=== PATIENT | female | born 1980 | race Caucasian/White ===

== ENCOUNTER 2019-12-10 14:26 | Emergency (ER) | payer OTHER, SELFPAY ==
[2019-12-10 14:34] VITALS: BP 172/92; PULSE 103; RESP 20; TEMP 37.2; O2SAT 100
--- NOTE | 2019-12-10 14:45 | ED.SKABFB ---
HPI - Skin/Abscess/Foreign Bdy General Chief complaint: Skin/Abscess/Foreign Body Stated complaint: Bite on side of face Time Seen by Provider: 12/10/19 14:45 Source: patient History of Present Illness HPI narrative: Patient presents with left-sided cellulitis on the face. Patient states she thought she was getting atrial fibrillation and had a stroke with tingling. Patient denies any drainage patient is having a fever. Patient states she had a friend take a lesion and try and lanced that area last night. No streaking. Patient denies any history of MRSA. Patient states she had some clindamycin left over from when she had an abscess last year and she took 3 doses of that. Patient states she is applying peroxide and prevent area was looking better until she hit her self in the face when she was unloading bicycles for her father. Related Data Home Medications Medication Instructions Recorded Confirmed fluoxetine 40 mg PO DAILY 12/10/19 12/10/19 levothyroxine 100 mcg PO DAILY 12/10/19 12/10/19 Allergies Allergy/AdvReac Type Severity Reaction Status Date / Time tramadol Allergy Unknown Unknown Verified 12/10/19 14:51 ketorolac AdvReac Unknown Nausea and Verified 12/10/19 14:51 Vomiting oxycodone AdvReac Unknown Nausea and Verified 12/10/19 14:51 Vomiting Review of Systems Review of Systems: Narrative: CONSTITUTIONAL: Denies fever, chills, or sweats. EYES: Denies visual changes, redness, or discharge. ENT: Denies rhinorrhea, congestion, sore throat, or otalgia. CARDIOVASCULAR: Denies chest pain, palpitations, or edema. RESPIRATORY: Denies cough or dyspnea. GASTROINTESTINAL: Denies abdominal pain, nausea, vomiting, or diarrhea. GENITOURINARY: Denies dysuria or hematuria. SKIN: Denies rash or itching. Insect bite to chin MUSCULOSKELETAL: Denies back pain, joint pain, or myalgia. NEUROLOGIC: Denies headache, numbness, or weakness. PSYCHIATRIC: Denies anxiety or depression. PMFSH Comments At time of signature, agree with nursing past medical, surgical, social and family history. There is no relevant family history pertinent to the presenting complaint Exam Narrative: Exam Narrative: GENERAL: Well-appearing, well-nourished, and in no acute distress. HEAD: Normocephalic, atraumatic. EYES: PERRLA and EOMI. ENT: Nares clear, no rhinorrhea or epistaxis. Mucous membranes moist. NECK: Supple. CHEST: Clear to auscultation. No respiratory distress. HEART: Regular rate and rhythm. No murmur heard. Normal peripheral pulses. ABDOMEN: Soft, nontender, nondistended, normal active bowel sounds. EXTREMITIES: Normal range of motion. No edema. SKIN: Warm, dry, no rash. NEURO: No focal deficits. Alert and oriented x3. [place] Coma Scale Eye Opening: Spontaneous 4 [place] Coma Scale Motor: Obeys Commands 6 [place] Coma Scale Verbal: Oriented 5 [place]ann Coma Scale Total 15 HENMT: Nose image: 1. 3x3cm firm area no drainage no fluctuance no induration no indication for I&D Course Vital Signs Vital signs: Vital Signs Temperature 37.2 C 12/10/19 14:34 Pulse Rate 103 H 12/10/19 14:34 Respiratory Rate 20 12/10/19 14:34 Blood Pressure 172/92 H 12/10/19 14:34 Pulse Oximetry 100 12/10/19 14:34 Temperature 37.2 C 12/10/19 14:34 Pulse Rate 103 H 12/10/19 14:34 Respiratory Rate 20 12/10/19 14:34 Blood Pressure 172/92 H 12/10/19 14:34 Pulse Oximetry 100 12/10/19 14:34 Please BONG schedule a followup visit with your personal physician for further evaluation and treatment. Including recheck and discussion of your blood pressure. If your symptoms persist, change or worsen significantly before you can contact your personal physician then please, without delay, go to the emergency department for further evaluation MDM - Skin/Abscess/Foreign Bdy Differential Diagnosis Differential diagnosis: Likely abscess of skin or subcutaneous tissue, viral exanthem, dermatophytosis, urticaria, herpes zoster, chris
[2019-12-10 14:58] VITALS: BP 180/96
== END 2019-12-10 14:58 | disposition home or self-care (01) ==
PROVIDERS: Emergency Provider Nurse Practitioner Family
DX: L02.01 Cutaneous abscess of face (principal); L03.211 Cellulitis of face; E03.9 Hypothyroidism, unspecified; F32.9 Major depressive disorder, single episode, unspecified
CPT/HCPCS: 99203; G0463

== ENCOUNTER 2020-04-16 19:05 | Emergency (ER) | payer OTHER, SELFPAY | END 2020-04-16 19:19 | disposition left against medical advice (07) | LOC: EXPBETH 19:12 | PROVIDERS: Emergency Provider Nurse Practitioner Adult Health | DX: Z53.21 Procedure and treatment not carried out due to patient leaving prior to being seen by health care provider (principal) | CPT/HCPCS: 99199 ==

== ENCOUNTER 2021-01-03 11:07 | Emergency (ER) | payer OTHER, SELFPAY ==
[2021-01-03 11:12] VITALS: BP 151/93; PULSE 100; RESP 20; TEMP 36.7; O2SAT 99
--- NOTE | 2021-01-03 12:24 | ED.SKABFB ---
HPI - Skin/Abscess/Foreign Bdy General Chief complaint: Skin/Abscess/Foreign Body Stated complaint: Abcess or boil on side Time Seen by Provider: 01/03/21 11:50 Source: patient and RN notes reviewed Mode of arrival: ambulatory Limitations: no limitations History of Present Illness HPI narrative: Patient presents today complaining of an abscess to her left lower quadrant x2 days. She has been applying Prid Salve with some change in symptoms. Hx of abscesses, mostly of the genitalia. She has had to have them lanced in the past. Currently rates her pain 4/10, which increases to 7/10 with movement. MD complaint: abscess/boil Related Data Home Medications Medication Instructions Recorded Confirmed levothyroxine 100 mcg PO DAILY 12/10/19 01/03/21 lisinopril-hydrochlorothiazide 10 tablet PO DAILY 01/03/21 01/03/21 Allergies Allergy/AdvReac Type Severity Reaction Status Date / Time tramadol Allergy Unknown Unknown Verified 12/10/19 14:51 ketorolac AdvReac Unknown Nausea and Verified 12/10/19 14:51 Vomiting oxycodone AdvReac Unknown Nausea and Verified 12/10/19 14:51 Vomiting Review of Systems Review of Systems: CONSTITUTIONAL: Denies body aches, fever, chills, or sweats. EYES: Denies visual changes, redness, or discharge. ENT: Denies rhinorrhea, congestion, sore throat, or otalgia. CARDIOVASCULAR: Denies chest pain, palpitations, or edema. RESPIRATORY: Denies cough or dyspnea. GASTROINTESTINAL: Denies abdominal pain, nausea, vomiting, or diarrhea. GENITOURINARY: Denies dysuria or hematuria. SKIN: Denies rash, itching, or wounds.+ Abscess to left abdomen MUSCULOSKELETAL: Denies back pain, joint pain, or myalgia. NEUROLOGIC: Denies headache, numbness, tingling, or weakness. PSYCH: Denies depression or anxiety. [facility] Past Medical History Medical History (Updated 01/03/21 @ 12:32 by Norma Whitney, [employer] FOUNDER, ) Hypertension Hypothyroidism Comments At time of signature, I have reviewed and agree with nursing past medical, surgical, social and family history unless otherwise noted. Please see nursing chart for further information. There is no relevant family history pertinent to the presenting complaint Exam Narrative: GENERAL: Well-appearing, well-nourished, and in no acute distress. HEAD: Normocephalic, atraumatic. EYES: EOMI. No redness or drainage. Conjunctivae normal. ENT: Mucous membranes pink and moist. NECK: Normal AROM. Supple. No lymphadenopathy. CHEST: No respiratory distress. ABDOMEN: Soft. MUSCULOSKELETAL: No bony tenderness. EXTREMITIES: Normal range of motion. No edema. SKIN: Warm, dry, no rash. Capillary refill normal. Normal skin turgor. 10 x 15 cm area of erythema to the left lower abdomen. 4 x 4 centimeter area of induration in the center. 0.5 cm open area with gummy yellow purulent discharge that will not be expressed with pushed. NEURO: No focal deficits. Alert and oriented x3. Gait steady. PSYCH: Normal affect. No signs of depression or anxiety. Course Vital Signs Vital signs: Vital Signs Temperature 98.0 F 01/03/21 11:12 Pulse Rate 100 01/03/21 11:12 Respiratory Rate 20 01/03/21 11:12 Blood Pressure 151/93 H 01/03/21 11:12 Pulse Oximetry 99 01/03/21 11:12 Temperature 98.0 F 01/03/21 11:12 Pulse Rate 100 01/03/21 11:12 Respiratory Rate 20 01/03/21 11:12 Blood Pressure 151/93 H 01/03/21 11:12 Pulse Oximetry 99 01/03/21 11:12 Reviewed. Pt has been instructed to follow up with her PCP regarding her elevated blood pressure today. Procedures Abscess I/D abdomen: Date of Incision: 01/03/21 Time of Incision: 12:00 Side (if applicable): left Local Anesthetic: lidocaine 1% Amount of anesthesia used (mL): 3 Technique: incised with #11 blade Amount of fluid expressed (mL): 2 Irrigation: No Packing used?: none I&D Results: Pus and Blood Abcess I&D Additional Comments:
== END 2021-01-03 12:37 | disposition home or self-care (01) ==
PROVIDERS: Emergency Provider Nurse Practitioner
DX: L02.211 Cutaneous abscess of abdominal wall (principal); I10 Essential (primary) hypertension; E03.9 Hypothyroidism, unspecified
CPT/HCPCS: 10060; 99213; G0463

== ENCOUNTER 2024-03-15 15:02 | Emergency (ER) | payer OTHER, SELFPAY ==
[2024-03-15 15:08] VITALS: BP 157/85; PULSE 100; RESP 20; TEMP 36.4; O2SAT 100
--- NOTE | 2024-03-15 15:17 | ED.SKABFB ---
HPI - Skin/Abscess/Foreign Bdy General Chief complaint: Extremity Injury, Lower Stated complaint: left foot big toe infection Time Seen by Provider: 03/15/24 15:14 Source: patient, RN notes reviewed and old records reviewed Mode of arrival: ambulatory Limitations: no limitations History of Present Illness HPI narrative: 43 year old female who presents to [facility] care with complaints of left great toe redness and swelling with pain to her toe for the past 4 days. Patient reports that she clipped the cuticle on her left great toe and pulled piece of nail out and ripped the skin. Patient reports that she just found out she is possibly diabetic and she is suppose to check her sugar once daily but has not been started on any medication for diabetes.Patient reports that she is to have follow up appointment in May. Patient reports no fevers chills or sweats reports no drainage from her toe. complaint: other (clipped cuticle left great toe) Onset (ago): day(s) (4) Tetanus up to date: no Location: L foot (left great toe) Severity scale (1-10): 4 Pain Consistency: intermittent Treatments prior to arrival: other (soaked toe, applied bactine and Neosporin) Related Data Home Medications ?Medication ?Instructions ?Recorded ?Confirmed ?Last Taken ?Type levothyroxine 100 mcg tablet 100 mcg PO DAILY 12/10/19 01/03/21 Unknown History lisinopril 10 10 tablet PO DAILY 01/03/21 03/15/24 Unknown History mg-hydrochlorothiazide 12.5 mg tablet famotidine 40 mg tablet 40 mg PO DAILY 03/15/24 Unknown History lisinopril 20 1 tablet PO DAILY 03/15/24 Unknown History mg-hydrochlorothiazide 25 mg tablet Allergies Allergy/AdvReac Type Severity Reaction Status Date / Time tramadol Allergy Unknown Unknown Verified 03/15/24 15:13 ketorolac AdvReac Unknown Nausea and Verified 03/15/24 15:13 Vomiting oxycodone AdvReac Unknown Nausea and Verified 03/15/24 15:13 Vomiting Review of Systems Review of Systems: CONSTITUTIONAL: Denies fever, chills, or sweats. CARDIOVASCULAR: Denies chest pain, palpitations, or edema. RESPIRATORY: Denies cough or dyspnea. SKIN: Reports red irritated skin to the left great toe where she ripped piece of skin off when removing ingrown toenail MUSCULOSKELETAL: Denies joint pain or myalgia. NEUROLOGIC: Denies headache, numbness, or weakness. All systems reviewed & are unremarkable except as noted in HPI and below PMFSH Past Medical History Medical History (Updated 03/16/24 @ 00:00 by Rj Chauhan) Hypertension Hypothyroidism Surgical History Surgical History (Updated 03/17/24 @ 09:12 by Shagufta Alonso NP) H/O tubal ligation Previous section x3 Social History Social History (Updated 03/17/24 @ 09:11 by Shagufta Alonso NP) Smoking status: Current every day smoker Tobacco type: cigarettes Alcohol intake: current Alcohol use details: social Substance use type: does not use Living arrangements: with family Gender identity (if verbalized by the patient): Female Comments At time of signature, agree with nursing past medical, surgical, social and family history. There is no relevant family history pertinent to the presenting complaint Exam Narrative: GENERAL: Well-appearing, well-nourished, and in no acute distress. HEAD: Normocephalic, atraumatic. EYES: PERRLA, conjunctivae clear, and EOMI. ENT: Mucous membranes moist. Oropharynx without edema, erythema or lesions. NECK: Supple. No lymphadenopathy CHEST: Clear to auscultation. No respiratory distress.SAO2 100% on room air HEART: Regular rate and rhythm. SKIN: Warm, dry.? Red irritated skin to the outer base of the left great toe with pain and swelling, no drainage noted.tenderness to palpation no fluctuation of tissue. NEURO:? Alert and oriented x3. PSYCH: Normal mood and affect Course Course Emergency Course: Patient is aware of diagnosis, understands and agrees to treatment plan.? Anticipatory guidance given.? Patient agrees to follow-up as directed and is aware of reasons to seek care at the emergency department. Portions of this record may have been created with voice recognition software Level of Care: Express Care Visit Vital Signs Vital signs: Vital Signs Temperature 36.4 C L 03/15/24 15:08 Pulse Rate 100 03/15/24 15:08 Respiratory Rate 20 03/15/24 15:08 Blood Pressure 157/85 H 03/15/24 15:08 Pulse Oximetry 100 03/15/24 15:08 Oxygen Delivery Room Air 03/15/24 15:08 Temperature 36.4 C L 03/15/24 15:08 Pulse Rate 100 03/15/24 15:08 Respiratory Rate 20 03/15/24 15:08 Blood Pressure 157/85 H 03/15/24 15:08 Pulse Oximetry 100 03/15/24 15:08 Oxygen Delivery Room Air 03/15/24 15:08 Reviewed MDM - Skin/Abscess/Foreign Bdy MDM Narrative Medical decision making narrative: Does not appear at this time to be erythema multiforme, bullous, SJS, TEN; no evidence at this time to suggest RMSF, endocarditis or Lyme disease; patient looks well, nontoxic and is tolerating oral intake; no neurologic signs or symptoms; no headache, photophobia or neck pain; afebrile; appropriate for initial outpatient treatment; discussed the importance of follow-up, patient agrees; question, viral exanthema, contact dermatitis, allergic dermatitis, eczema, urticaria.. No soft palate or uvula edema, no tongue, lip edema or other mucosal involvement, no respiratory compromise, no stridor, no wheezing, no wheezing, no history of syncope, no hypotension, no nausea, vomiting, or diarrhea.? Instructed patient to go to nearest ER immediately for any worsening symptoms including but not limited to: fever, spreading rash, pain, sore throat, headache, dizziness, chest pain, trouble breathing, or any symptoms concerning to the patient. Patient received Boostrix tetanus update while in clinic with no reaction noted. Differential Diagnosis Differential diagnosis: Likely abscess of skin or subcutaneous tissue, cellulitis, contact dermatitis and other (paronychia) Medical Records Attestation: I reviewed the patient's medical records. Critical Care Time Critical Care Time Critical Care Time: No Discharge Plan Discharge Clinical Impression: Paronychia of great toe of left foot Patient Disposition: Home, Self-Care Condition: Stable Instructions: Antibiotic Form, Paronychia (ED) Additional Instructions: Soak left great toe in liquid Dial soap rinse with warm water twice daily apply mupirocin watch for increasing infection--redness, swelling, drainage Tylenol or ibuprofen for any fever pain follow up with PCP in 7-10 days for a wound check recheck if develop fever, chills, increasing symptom Go to the ER if your symptoms become worse of if ANY new symptoms develop Antibiotics as prescribed complete all doses If your symptoms persist, change or worsen significantly before you can contact your personal physician then please, without delay, go to the emergency department for further evaluation. Follow-up with PCP in 7-10 days or sooner if needed Follow up with PCP soon in regards to your blood pressure which is elevated above threshold for referral. Blood pressure above 120/80 may indicate pre-hypertension. 157/85 Patient Language: Hebrew Prescriptions: New cephalexin 500 mg capsule 500 mg PO Q8H Qty: 21 0RF sulfamethoxazole-trimethoprim [Bactrim DS] 800-160 mg tablet 1 tablet PO Q12H Qty: 14 0RF mupirocin 2 % ointment 1 applic topical BID Qty: 22 0RF No Action levothyroxine 100 mcg Tablet 100 mcg PO DAILY famotidine 40 mg tablet 40 mg PO DAILY lisinopril-hydrochlorothiazide 20-25 mg tablet 1 tablet PO DAILY lisinopril-hydrochlorothiazide 10-12.5 mg tablet 10 tablet PO DAILY Follow-up/Referrals: PHYSICIAN,COMMERCIAL FISHING VESSEL OPERATOR [Primary Care Provider] - Time of Disposition: 16:55 Quality [place] Coma Scale Eyes: Open Verbal: Oriented and Alert Motor: Follows Commands [place] Coma Total Score: 15
[2024-03-15] MEDS: TETANUS,DIPHTHERIA,AC PERTUSSIS ADULT (0.5 ML) BOOSTRIX IM (15:47)
== END 2024-03-15 16:02 | disposition home or self-care (01) ==
PROVIDERS: Emergency Provider Registered Nurse
DX: L03.032 Cellulitis of left toe (principal); Z23 Encounter for immunization; F17.210 Nicotine dependence, cigarettes, uncomplicated; I10 Essential (primary) hypertension; E03.9 Hypothyroidism, unspecified
CPT/HCPCS: 90471; 90715; 99213; G0463

== ENCOUNTER 2024-04-29 10:29 | Emergency (ER) | payer OTHER, SELFPAY ==
--- NOTE | 2024-04-29 10:32 | ED_ITS ---
HPI - URI/Sore Throat General Stated Complaint: Mouth Sore Time Seen by Provider: 04/29/24 10:32 Source: patient Mode of arrival: ambulatory Limitations: no limitations Related Data Home Medications ?Medication ?Instructions ?Recorded ?Confirmed ?Last Taken ?Type levothyroxine 100 mcg tablet 100 mcg PO DAILY 12/10/19 01/03/21 Unknown History lisinopril 10 10 tablet PO DAILY 01/03/21 03/15/24 Unknown History mg-hydrochlorothiazide 12.5 mg tablet famotidine 40 mg tablet 40 mg PO DAILY 03/15/24 Unknown History lisinopril 20 1 tablet PO DAILY 03/15/24 Unknown History mg-hydrochlorothiazide 25 mg tablet Allergies Allergy/AdvReac Type Severity Reaction Status Date / Time tramadol Allergy Unknown Unknown Verified 03/15/24 15:13 ketorolac AdvReac Unknown Nausea and Verified 03/15/24 15:13 Vomiting oxycodone AdvReac Unknown Nausea and Verified 03/15/24 15:13 Vomiting Review of Systems Review of Systems: All systems reviewed & are unremarkable except as noted in HPI and below Constitutional: Constitutional: Denies chills, Denies fatigue, Denies fever(s), Denies headache(s), Denies malaise and Denies weakness Eyes: Eyes: Denies blurry vision, Denies itchy eyes and Denies loss of vision ENT: Denies otalgia, Denies headache(s), Reports nasal congestion, Denies sinus pain and Denies sore throat Cardiovascular: Cardiovascular: Denies chest pain, Denies irregular heart rhythm and Denies dyspnea Respiratory: Respiratory: Reports cough and Denies dyspnea Gastrointestinal: Gastrointestinal: Denies abdominal pain, Denies diarrhea, Denies nausea and Denies vomiting Musculoskeletal: Musculoskeletal: Denies back pain, Denies myalgias and Denies arthralgias Integumentary/Breasts: Skin/Breast: Denies pruritus and Denies rash Neurologic: Denies headache(s), Denies loss of vision and Denies weakness Psychiatric: Psychiatric: Reports no additional psychiatric complaints Endocrine: Endocrine: Denies fatigue Allergic/Immunologic: Allergic/Immunologic: Denies itchy eyes PMFSH Past Medical History Medical History (Updated 03/16/24 @ 00:00 by Rj Chauhan) Hypertension Hypothyroidism Surgical History Surgical History (Updated 03/17/24 @ 09:12 by Shagufta Alonso NP) H/O tubal ligation Previous section x3 Social History Social History (Updated 03/17/24 @ 09:11 by Shagufta Alonso NP) Smoking status: Current every day smoker Tobacco type: cigarettes Alcohol intake: current Alcohol use details: social Substance use type: does not use Living arrangements: with family Gender identity (if verbalized by the patient): Female Comments At time of signature, agree with nursing past medical, surgical, social and family history. There is no relevant family history pertinent to the presenting complaint. Exam Const: General: cooperative, healthy appearing, comfortable, no acute distress and well nourished Nutritional Appearance: well nourished Orientation/consciousness: patient oriented x3 Limitations: no limitations HENMT: Head: normal to inspection, normocephalic and atraumatic Ears: hearing grossly normal bilaterally, external ears normal, TM's normal bilaterally, EAC's normal and no periauricular adenopathy Face/Nose/Sinus: Normal external nose present, Abnormal mucous membranes and turbinates present erythematous bilateral and diffuse, normal facial exam, sinuses nontender and face symmetric Face and sinus: normal facial exam, sinuses nontender and face symmetric Mouth: Yes Normal oral and palatal mucosa present, Yes lip normal, Yes tongue normal, Yes Normal salivary glands and ducts present, Yes oropharynx normal and Yes moist mucous membranes Teeth and gingiva: dentition normal Throat: posterior oropharynx normal, tonsils normal and uvula midline Eyes: General: appearance normal, both eyes and all related structures Alignment and Position: alignment normal and position normal Periorbital: periorbital findings normal Eyelids: eyelids normal Pupils: Equal, round and reactive pupils present Neck: Neck: normal visual inspection, full ROM, no lymphadenopathy and supple Chest: Chest palpation & inspection: normal inspection of the chest and normal palpation of entire chest wall Resp: Effort & Inspection: normal respiratory effort and able to speak in complete sentences Auscultation: clear to auscultation bilaterally, no crackles, no rales, no rhonchi and no wheezes Cardio: Rate: regular rate Rhythm: regular rhythm Heart sounds: S1 normal heart sound present and S2 normal heart sound present GI: Inspection: normal to inspection Skin: General skin exam: normal color and no rashes or lesions noted Neuro: General: patient oriented x3 and moves all extremities Cranial nerves: Yes Equal, round and reactive pupils present Speech: normal speech Gait exam (Neuro): Normal gait present Extrem: General: normal to inspection, full ROM and no edema Psych: Appearance: grossly normal and well kempt Mental Status: mental status grossly normal Speech and movement: Normal speech and movement present Affect: normal affect Attitude: cooperative Thought process: Normal t hought process present Course Course Emergency Course: Discharge instructions reviewed with patient, as well as provided in writing per nursing staff. The instructions also include specific and strict return/GO TO THE ER as well as f/u information. All questions have been answered, and the patient deny any further questions with discharge and discharge plan. Portions of this record may have been created with voice recognition software Level of Care: Express Care Visit Vital Signs Vital signs: Reviewed MDM - URI/Sore Throat MDM Narrative Medical decision making narrative: Pt well hydrated appearing, in no respiratory distress, hemodynamically stable. Recommend supportive care. The patient is stable at time of discharge the clinical impression was discussed and the patient was given the opportunity to ask questions, which were addressed as completely as possible given the in formation available at present. Anticipatory guidance and return to care precautions were discussed and the importance of primary care follow-up was stressed and encouraged. The patient voiced understanding of the plan, indications to return, and the need for follow-up. Differential diagnosis considered: Bronchitis, De [place] Rosa virus, strep pharyngitis, allergic rhinitis, upper respiratory tract infection, sinusitis, rhinosinusitis, nasopharyngitis. viral pharyngitis, otitis media, otitis externa, otitis effusion, foreign body, cerumen impaction, viral syndrome, and influenza.? Exam findings show no acute concerns or changes; patient is non-toxic appearing and is in no distress.? Patient is appropriate for outpatient treatment and follow- up.? Medical Records Attestation: I reviewed the patient's medical records. Lab Data Attestation: I reviewed the patient's lab results. Discharge Plan Discharge Patient Language: Kenyan Prescriptions: No Action levothyroxine 100 mcg Tablet 100 mcg PO DAILY famotidine 40 mg tablet 40 mg PO DAILY lisinopril-hydrochlorothiazide 20-25 mg tablet 1 tablet PO DAILY cephalexin 500 mg capsule 500 mg PO Q8H Qty: 21 0RF sulfamethoxazole-trimethoprim [Bactrim DS] 800-160 mg tablet 1 tablet PO Q12H Qty: 14 0RF mupirocin 2 % ointment 1 applic topical BID Qty: 22 0RF lisinopril-hydrochlorothiazide 10-12.5 mg tablet 10 tablet PO DAILY Follow-up/Referrals: PHYSICIAN,ENVIRONMENTAL ENGINEER SCIENTIST [Primary Care Provider] -
[2024-04-29 10:33] VITALS: BP 145/88; PULSE 100; RESP 16; TEMP 36.3; O2SAT 100
--- NOTE | 2024-04-29 10:53 | ED_ITS ---
HPI - Dental/Oral General Chief complaint: Dental/Oral Stated complaint: Mouth Sore Time Seen by Provider: 04/29/24 10:32 Source: patient Mode of arrival: ambulatory Limitations: no limitations History of Present Illness HPI Narrative: Patient is a 43-year-old female who presents with left lower dental pain and abscess that started 2 weeks ago. Patient has been on amoxicillin since the for infection with no improvement. History of broken tooth 5 months ago with repeated abscesses since. Patient also concern for abscess in right nare. Patient reports that she uses a warm washcloth and will open and drain. Denies any fever, chills, nausea, vomiting, diarrhea. Related Data Home Medications ?Medication ?Instructions ?Recorded ?Confirmed ?Last Taken ?Type levothyroxine 100 mcg tablet 100 mcg PO DAILY 12/10/19 04/29/24 Unknown History lisinopril 10 10 tablet PO DAILY 01/03/21 04/29/24 Unknown History mg-hydrochlorothiazide 12.5 mg tablet famotidine 40 mg tablet 40 mg PO DAILY 03/15/24 Unknown History lisinopril 20 1 tablet PO DAILY 03/15/24 04/29/24 Unknown History mg-hydrochlorothiazide 25 mg tablet Allergies Allergy/AdvReac Type Severity Reaction Status Date / Time tramadol Allergy Unknown Unknown Verified 04/29/24 10:40 ketorolac AdvReac Unknown Nausea and Verified 04/29/24 10:40 Vomiting oxycodone AdvReac Unknown Nausea and Verified 04/29/24 10:40 Vomiting Review of Systems 2 Review of Systems: All systems reviewed & are unremarkable except as noted in HPI and below Constitutional: Constitutional: Denies body ache(s), Denies fever(s), Denies headache(s), Denies malaise and Denies weakness Eyes: Eyes: Denies loss of vision ENT: Denies otalgia, Reports facial pain (jaw), Denies headache(s), Denies nasal discharge, Denies sinus pain and Denies sore throat Cardiovascular: Cardiovascular: Denies chest pain, Denies irregular heart rhythm and Denies dyspnea Respiratory: Respiratory: Denies dyspnea Gastrointestinal: Gastrointestinal: Denies abdominal pain, Denies melena, Denies hematochezia, Denies diarrhea, Denies nausea and Denies vomiting Musculoskeletal: Musculoskeletal: Denies back pain, Denies myalgias and Denies arthralgias Integumentary/Breasts: Skin/Breast: Denies pruritus, Denies rash and Reports wounds Neurologic: Denies headache(s), Denies loss of vision and Denies weakness Psychiatric: Psychiatric: Reports no additional psychiatric complaints PMFSH Past Medical History Medical History Hypertension Hypothyroidism Surgical History Surgical History H/O tubal ligation Previous section x3 Social History Social History Smoking status: Current every day smoker Tobacco type: cigarettes Alcohol intake: current Alcohol use details: social Substance use type: does not use Living arrangements: with family Gender identity (if verbalized by the patient): Female Comments At time of signature, agree with nursing past medical, surgical, social and family history. There is no relevant family history pertinent to the presenting complaint. Exam 2 Const: General: cooperative, healthy appearing, comfortable, no acute distress and well nourished Nutritional Appearance: well nourished O rientation/consciousness: patient oriented x3 Limitations: no limitations HENMT: Head: normal to inspection, normocephalic and atraumatic Ears: h earing grossly normal bilaterally, external ears normal, TM's normal bilaterally and mastoids normal bilaterally Face/Nose/Sinus: Normal external nose present, Nasal discharge present purulent on the right, normal facial exam and face symmetric Nose image: 1. abscess with active drainage just inside of nasal passage. Face and sinus: normal facial exam and face symmetric Mouth: Yes Normal oral and palatal mucosa present, Yes lip normal, Yes tongue normal, Yes Normal salivary glands and ducts present and Yes moist mucous membranes Teeth and gingiva: abnormal tooth and associated gingiva lower left third molar tender, with associated gingival edema and dentin fractured and poor dentition Eyes: General: appearance normal, both eyes and all related structures A lignment and Position: alignment normal and position normal Periorbital: p eriorbital findings normal Eyelids: eyelids normal Pupils: Equal, round and reactive pupils present EOM: EOMs intact bilaterally Neck: Neck: normal visual inspection, full ROM, no lymphadenopathy and supple Chest: Chest palpation & inspection: normal inspection of the chest Resp: Effort & Inspection: normal respiratory effort and able to speak in complete sentences Auscultation: clear to auscultation bilaterally Cardio: Rate: regular rate Rhythm: regular rhythm Heart sounds: S1 normal heart sound present and S2 normal heart sound present GI: Inspection: normal to inspection Skin: General skin exam: normal color and no rashes or lesions noted Neuro: General: patient oriented x3 and moves all extremities Cranial nerves: Yes Equal, round and reactive pupils present Speech: normal speech Gait exam (Neuro): Normal gait present Extrem: General: normal to inspection, full ROM and no edema Psych: Appearance: grossly normal and well kempt Mental Status: mental status grossly normal Speech and movement: Normal speech and movement present Affect: normal affect Attitude: cooperative Thought process: Normal thought process present Course Course Emergency Course: Patient is aware of diagnosis, understands and agrees to treatment plan. Anticipatory guidance given. Patient agrees to follow-up as directed and is aware of reasons to seek care at the emergency department. Portions of this record may have been created with voice recognition software Level of Care: Express Care Visit Vital Signs Vital signs: Vital Signs Temperature 36.3 C L 04/29/24 10:33 Pulse Rate 100 04/29/24 10:33 Respiratory Rate 16 04/29/24 10:33 Blood Pressure 145/88 H 04/29/24 10:33 Pulse Oximetry 100 04/29/24 10:33 Oxygen Delivery Room Air 04/29/24 10:33 Temperature 36.3 C L 04/29/24 10:33 Pulse Rate 100 04/29/24 10:33 Respiratory Rate 16 04/29/24 10:33 Blood Pressure 145/88 H 04/29/24 10:33 Pulse Oximetry 100 04/29/24 10:33 Oxygen Delivery Room Air 04/29/24 10:33 Reviewed MDM - Dental/Oral MDM Narrative Medical decision making narrative: Patients pain and complaint coupled with physical findings are consistant with dentalgia. There are no focal signs of space occupying lesions that are compromising to the airway; no dysphagia, odynophagia, dysphonia, or dyspnea. No uvular deviation or soft palate edema. Patient is non-toxic appearing. The floor of the mouth is soft with no signs of Harman's Angina; no induration below mandible, no neck pain. Patient is without trismus or drooling and able to swallow secretions. Patient is felt appropriate for discharge home with dental follow up. Dental clinic list given to patient Differential Diagnosis Differential diagnosis: Likely gingival abscess, dental caries, dental abscess and other (nasal abscess) Medical Records Attestation: I reviewed the patient's medical records. Discharge Plan Discharge Clinical Impression: Dental abscess, Abscess of nasal cavity Patient Disposition: Home, Self-Care Condition: Stable Instructions: Dental Abscess (ED), Abscess (ED), Warm Compress or Soak (ED) Additional Instructions: Take antibiotic until it's gone. Brushing teeth at least twice daily with gentle flossing. Avoid temperature extremes---when you eat. Salt gargle to rinse your mouth after every meal You may apply ice to the face to reduce pain/swelling. For pain, you may take: Tylenol 650-1000mg by mouth every 4-6 hours. Do not exceed 4000mg in 24 hours. Advil (Ibuprofen) 600 mg by mouth every 6 hours. Do not exceed 2400mg in 24 hours. Also, recommend regular dental check up one-two times a year to prevent tooth decay and other periodontal disease. Follow-up with the dentist as soon as possible--see the list provided Adriana shafer shower - let the soapy water clean your wound, do not scrub it. Keep your wound covered to prevent transmission of infection to other people. Keep the wound covered and dry. Once a day: wash the wound with soap/water, apply bacitracin or neosporin and re-cover the wound. Follow up with your primary care physician or in the Emergency Department in 2-3 days for a wound check. Go to the Emergency Department immediately if you develop any of the following symptoms: Fevers, Increased redness or swelling around where your abscess was, Increased pain, or Generalized weakness or vomiting Cynthia blood pressure was elevated above 120/80 today at Urgent Care. This puts you above the threshold for follow up visit with a primary care provider. High blood pressure does not usually cause any symptoms, however it may lead to kidney failure, stroke, heart disease just to name a few if untreated . Many people are anxious when seeing a provider or nurse. As a result, you are not diagnosed with hypertension at this time unless your blood pressure is persistently high at two office visits at least one week apart. Some things that can help lower blood pressure are lifestyle modifications, such as light exercise, decreased salt in diet, and weight loss. It is important to follow up with a PCP about this within 1 week. Patient Language: Indonesian Prescriptions: New clindamycin HCl 300 mg capsule 300 mg PO Q8H 10 Days Qty: 30 0RF mupirocin 2 % ointment 1 applic topical BID Qty: 15 0RF No Action levothyroxine 100 mcg Tablet 100 mcg PO DAILY famotidine 40 mg tablet 40 mg PO DAILY lisinopril-hydrochlorothiazide 20-25 mg tablet 1 tablet PO DAILY cephalexin 500 mg capsule 500 mg PO Q8H Qty: 21 0RF sulfamethoxazole-trimethoprim [Bactrim DS] 800-160 mg tablet 1 tablet PO Q12H Qty: 14 0RF mupirocin 2 % ointment 1 applic topical BID Qty: 22 0RF lisinopril-hydrochlorothiazide 10-12.5 mg tablet 10 tablet PO DAILY Follow-up/Referrals: Rani Coffey DO [Physician] - 3 Days (Establish care) Time of Disposition: 11:08
--- OUTSIDE RECORDS SUMMARY | 2024-04-29 11:05 | XMS_ITS | Referral Summary ---
Author Organization [facility] nayely Address [address] [place] [address] Care Team Providers Care Contract Serviceman Name Role Phone Candace Deluna NP Primary Care Provider [phone] Encounters Date Type Department Care Team Description 04/29/2024 8:30 AM WEATHERIZATION CREW LEADER Emergency [facility] Emergency Department [address] [place] [address] 04/20/2024 3:15 PM WEATHERIZATION CREW LEADER Telemedicine [facility] Virtual Care [address] [place] [phone] Dina Moncada NP Dental abscess (Primary Dx) 04/20/2024 Patient Self-Triage [facility] [address] [place] [phone] Mychart, Generic Provider 03/09/2024 Orders Only [facility] Primary Care at [address] [place] [phone] Candace Deluna NP from Last 3 Months Allergies Active Allergy Reactions Criticality Noted Date Comments Latex Unknown 08/28/2022 Propoxyphene-Acetamino phen Tramadol Nausea only,Other (S ee comments),Palpitations Low 05/06/2015 Reaction: Other Medications triamcinolone (KENALOG) 0.1 % cream Apply 1 g topically 2 (two) times a day 30 g 08/29/19 19 Active OneTouch Ultra Test strip 200 each by other route 2 (two) times a day before breakfast and dinner OneTouch Ultra Test strips is what her insurance will pay for. Check blood sugar twice daily before breakfast and dinner. 200 strip 3 05/20/19 24 Active clotrimazole 1 % creamIndications:t inea cruris Apply topically 2 (two) times a day 30 g 1 06/24/19 24 Active carvediloL (COREG) 6.25 mg tabletIndications: Hypertension, essential Take 1 tablet (6.25 mg total) by mouth 2 (two) times a day with meals 60 tablet 11 06/24/19 24 025 Active ferrous sulfate 325 mg (65 mg of elemental iron) tabletIndications: Iron Deficiency Anemia Take 1 tablet (325 mg total) by mouth daily with breakfast 90 tablet 3 06/24/19 24 025 Active docusate sodium (COLACE) 100 mg capsuleIndications :constipation Take 1 capsule (100 mg total) by mouth 2 (two) times a day 60 capsule 2 06/24/19 24 Active dulaglutide (TRULICITY) 0.75 mg/0.5 mL pen injectorIndication s:Type 2 diabetes mellitus with hyperglycemia, without long-term current use of insulin (HCC) Inject 0.5 mL (0.75 mg total) under the skin every 7 days 2 mL 06/24/19 24 Active metFORMIN XR (GLUCOPHAGE XR) 500 mg 24 hr tabletIndications: Type 2 diabetes mellitus with hyperglycemia, without long-term current use of insulin (HCC) Take 1 tablet (500 mg total) by mouth daily with breakfast 90 tablet 4 06/24/19 24 025 Active ondansetron ODT (ZOFRAN-ODT) 4 mg disintegrating tablet Take 1 tablet (4 mg total) by mouth every 6 (six) hours as needed for nausea or vomiting 20 tablet 07/01/19 24 Active dicyclomine (BENTYL) 20 mg tablet Take 1 tablet (20 mg total) by mouth every 6 (six) hours as needed (Crampy abdominal pain) 20 tablet 07/01/19 24 Active OneTouch Ultra2 Meter misc 1 kit once for 1 dose 1 each 3 10/12/19 24 Active OneTouch Delica Plus Lancet 30 gauge misc Inject 100 Lancets under the skin 2 (two) times a day 100 each 11 10/12/19 24 Active mupirocin (BACTROBAN) 2 % ointment Apply topically 3 (three) times a day 22 g 10/12/19 24 Active levothyroxine (SYNTHROID) 75 mcg tabletIndications: Acquired hypothyroidism Take 1 tablet (75 mcg total) by mouth upper trimmer before breakfast 30 tablet 1 10/12/19 24 Active famotidine (PEPCID) 40 mg tablet Take 1 tablet (40 mg total) by mouth nightly 90 tablet 03/08/20 24 025 Active lancets miscIndications: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 Recommend follow up with dentist for evaluation. If symptoms worsen or do not improve recommend in person evaluation. Patient verbalized understanding and agreed to plan of care at this time. Iron deficiency anemia 06/24/2023 Assessment & Plan (06/24/2023 9:33 PM CDT): - no obvious blood loss, patient has been referred to GI, patient currently is not interested in EGD/colonoscopy at this time - recent CTA did show evidence of gastritis - patient declines PPI therapy at this time, continue famotidine 40 mg nightly - reports normal menstrual cycles w/o menorrhagia - hemoglobin 9.4, hematocrit 13.5 - iron 17, TIBC 460, transferrin sat 4 - continue ferrous sulfate 325 mg daily Trichomonas vaginitis 06/24/2023 Assessment & Plan (06/24/2023 9:34 PM CDT): - start metronidazole 500 mg t.i.d. x7 days - call if no improvement - instruct partner to get treatment Class 2 severe obesity with serious comorbidity and body mass index (BMI) of 39.0 to 39.9 in adult 06/24/2023 Assessment & Plan (06/24/2023 9:35 PM CDT): - avoid/limit processed, fried/fast foods and simple/refined carbohydrate. Aim to eat plenty of vegetables, whole grains, legumes, lean protein, low-fat dairy, fruit, and include some healthy fats such as olive oil, nuts, avocados, and baked fatty fish such as salmon. - limit carbohydrates to less than 150 g daily - referral to asthma educator - aim to walk at least 30 minutes daily, strength training at least 2-3 times weekly Hypertension, essential 05/20/2023 Assessment & Plan (06/24/2023 9:20 PM CDT): - chronic, improving - continue lisinopril-HCTZ 20/25 mg daily, add carvedilol 6.25 mg b.i.d. - eGFR 120, check uACR - low-sodium, ADA diet - referral for diabetes nutrition counseling Assessment & Plan (05/20/2023 8:43 PM CDT): - has been off antihypertensives medications for the past year - previously on lisinopril HCTZ 20-25 mg daily - check CBC with diff, BMP, uACR - r/o CHF, BLE pitting edema +1, mild WILLS; holosystolic murmur grade 2, 3rd heart sound present - obtain TTE, pro BNP - restart lisinopril HCTZ 20-25 mg daily pending renal function History of hepatitis C 05/20/2023 Assessment & Plan (06/24/2023 9:32 PM CDT): - diagnosis with hepatitis-C back in 2017, never treated - referral to Gastroenterology Assessment & Plan (05/20/2023 8:45 PM CDT): - diagnosis with hepatitis-C back in 2017, never treated, no prior LFTs on file or liver imaging. Neg jaundice or scleral icterus. Ascites present. - check acute hepatitis panel, HCV viral load - check hepatic function panel, alpha 1 fetoprotein, ammonia, ceruloplasmin, PT INR - obtain liver US - referral to GI Hypothyroidism (acquired) 05/20/2023 Assessment & Plan (06/24/2023 9:15 PM CDT): - chronic; most recent TSH 4.31, T4 1.10 - continue levothyroxine 75 mcg - repeat TSH Assessment & Plan (05/20/2023 8:46 PM CDT): - check TSH - start levothyroxine 75 mcg daily Thrush 05/20/2023 Assessment & Plan (05/20/2023 8:47 PM CDT): - check HIV status - nystatin swish and swallow q.i.d. for at least 14 days Rash 05/20/2023 Assessment & Plan (05/20/2023 8:48 PM CDT): - localized pruritic maculopapular rash to the dorsal lateral right hand, not responding to topical antifungal - suspect possible contact dermatitis - start topical clotrimazole b.i.d., call if no improvement over the next several days Lower extremity edema 05/20/2023 Heart murmur 05/20/2023 Current smoker 05/20/2023 Overview (05/20/2023): - Smokes 0.5 PPD, smoker on and off for the past 20 years - patient not ready to discuss smoking cessation at this time History of illicit drug use 05/20/2023 Overview (05/20/2023): - reports previous methamphetamine use Recurrent major depressive disorder 07/14/2013 Assessment & Plan (06/24/2023 9:31 PM CDT): - chronic, currently symptomatic - discussed treatment options including counseling, psychiatry referral, and medication management - patient not interested in treatment for this at this time - denies thoughts of self-harm Resolved Problems Problem Noted Date Diagnosed Date Resolved Date Type 2 diabetes mellitus wit h hyperglycemia, without long-term current use of insulin 06/24/2023 06/24/2023 Class 3 severe obesity due t o excess calories with serious comorbidity and body mass index (BMI) of 45.0 to 49.9 in adult 05/19/2023 Body mass index (BMI) 45.0-49.9, adult 05/19/2023 05/20/2023 Acute infective otitis externa of left ear 05/15/2018 05/20/2023 Acute left otitis media 05/15/201805/07 Panic disorder with agoraphobia 07/14/2013 05/20/2023 Diabetes mellitus affecting 04/28/2013 05/20/2023 Abdominal 04/21/2013 05/20/19 24 Nonalcoholic steatohepatitis (PERKINS) 10/29/2010 05/20/2023 Immunizations Immunization Administration Dates Next Due Influenza, Trivalent, IM (MDV) 05/12/2013 Influenza, Unspecified 05/19/2023(Deferr ed: Patient Refused),02/16/2023(Deferred: Patient Refused) Tdap 09/11/2016,05/12/2013 Social History Tobacco Use Types Packs/Day Years Used Date Smoking Tobacco: Every Day Cigarettes Smokeless Tobacco: Never Alcohol Use Standard Drinks/Week Comments Not Currently 0 (1 standard drink = 0.6 oz pur e alcohol) PHQ-2 Answer Date Recorded PHQ-2 Total Score (If total score is 3 or more points, staff should administer the PHQ-9) 0 05/19/2023 Personal Safety Answer Date Recorded Have you ever been in or are you currently in a harmful physical or emotional relationship or is someone making you feel afraid or unsafe? Denies 04/29/2024 Comments No Sex and Gender Information Value Date Recorded Sex Assigned at Not on file Legal Sex Female 10:54 AM WEATHERIZATION CREW LEADER Gender Identity Not on file Sexual Orientation Not on file Last Filed Vital Signs Vital Sign Reading Time Taken Comments Blood Pressure 145/90 04/29/2024 8:35 AM WEATHERIZATION CREW LEADER Pulse 105 04/29/2024 8:35 AM WEATHERIZATION CREW LEADER Temperature 36.1 C (97 F) 04/29/2024 8:35 AM WEATHERIZATION CREW LEADER Respiratory Rate 14 04/29/2024 8:35 AM WEATHERIZATION CREW LEADER Oxygen Saturation 100% 04/29/2024 8:35 AM WEATHERIZATION CREW LEADER Inhaled Oxygen Concentration - - Weight 104.3 kg (230 lb) 04/29/2024 8:35 AM WEATHERIZATION CREW LEADER Height 162.6 cm (5' 4 ) 04/29/2024 8:35 AM WEATHERIZATION CREW LEADER Body Mass Index 39.48 04/29/2024 8:35 AM WEATHERIZATION CREW LEADER Plan of Treatment Not on file Procedures Procedure Name Priority Date/Time Associated Diagnosis Comments EGFR STAT 07/01/2023 12:53 AM CDT ALBUMIN CREATININE RATIO, URINE Routine 05/19/2023 9:10 PM CDT Hypertension, essential HEPATITIS PANEL, ACUTE Routine 05/19/2023 9:02 PM CDT STI (sexually transmitted infection) HEMOGLOBIN A1C Routine 05/19/2023 8:43 PM CDT Screening for diabetes mellitus LIPID PANEL Routine 05/19/2023 8:43 PM CDT Screening for cholesterol level DIABETES EYE EXAM Routine 08/28/2022 9:02 AM CDT from Last 3 Months or Most Recently Relevant to Health Maintenance Results * eGFR (07/01/2023 12:53 AM CDT) eGFR >90 >=60 mL/min/1. 73 m2 Comment: Interpretive Data Reference Interval Normal >/= 90 mL/min/1.73m2 Mildly decreased* 60 - 89 mL/min/1.73m2 Mildly to moderately decreased 45 - 59 mL/min/1.73m2 Moderately to severely decreased 30 - 44 mL/min/1.73m2 Severely decreased 15 - 29 mL/min/1.73m2 Kidney Failure < 15 mL/min/1.73m2 *Relative to young adult level Estimated glomerular filtration rate is determined by the 2020 CKD-EPI equation recommended by the National Kidney Foundation (A Unifying Approach to GFR Estimation: Recommendations of the NKF-ASK Task Force on Reassessing the Inclusion of Race in Diagnosing Kidney Disease, JASN 2020). The CKD-EPI equation should not be used for patients with unstable renal function and has not been validated in children and those over 70. Current interpretive data was last reviewed 2021. Blood 07/01/2023 12:5 3 AM CDT 07/01/2023 12:55 AM CDT us Estrella John MD LAB BLOOD ORDERABLES Fin al Result [facility] Department [place] [address] * (ABNORMAL) Albumin Creatinine Ratio, Urine (05/19/2023 9:10 PM CDT) Albumin Ur 345.2 mg/L Comment: Interpretive Data No reference range established. Current interpretive data was last revised 2018. Creatinine Ur 32.2 mg/dL [facility]AL[facility] Comment: Interpretive Data No reference range established. Current interpretive data was last revised 2018. Albumin Creatinine Ratio, Ur 1,072(H) 1 - 29 mg/g [facility] Urine 05/19/2023 9:10 PM CDT 05/19/2023 9:10 PM CDT us Candace Deluna NP LAB URINE ORDERABLES Final R esult [facility] [id number] Department [place] [address] * (ABNORMAL) Hepatitis panel, acute Blood (05/19/2023 9:02 PM CDT) Hep A IgM Nonreactive Nonreactive Comment: Interpretive Data: If Hep A IgM Ab is reported as Equivocal, a new sample should be drawn in two weeks for testing. Current interpretive data was last revised on 19. Hep B core IgM Nonreactive Nonreactive [facility] Comment: Interpretive Data If HepB Core IgM Ab is reported as Equivocal, a new sample should be drawn in two weeks for testing. Current interpretive data was last revised on 19. Hep C Ab Reactive(A) Nonreactive [facility] Comment: Critical Result Interpretive Data Nonreactive: Antibodies to HCV not detected. Does NOT exclude the possibility of recent exposure to HCV. Equivocal: Equivocal for HCV antibodies. Supplemental molecular testing will be automatically performed to determine infection status in accordance with current CDC screening recommendations. Reactive: Positive for HCV antibodies. This may represent current or past HCV infection. Supplemental molecular testing will be automatically performed to determine current infection status in accordance with current CDC screening recommendations. Interpretive data was last revised on 2019. HepBsAg Nonreactive Nonreactive [facility] Blood 05/19/2023 9:02 PM CDT 05/19/2023 9:02 PM CDT Candace Deluna NP LAB MICROBIOLOGY - GENERAL O RDERABLES Final Result Performing Organization Address City/[facility] Co de Phone Number [facility] [id number] [facility] Department [place] [address] * (ABNORMAL) Hemoglobin A1c (05/19/2023 8:43 PM CDT) Hgb A1C 8.4(H) 4.0 - 5.6 % Estimated Average Glucose 194 mg/dL [facility] Comment: The ADA recommends reporting an estimated Average Glucose (eAG) with all Hemoglobin A1c results using the equation derived from a study of 507 normal and diabetic adults. Minority populations were underrepresented and children were not included. (Diabetes Care 31:6646-2677, 2008). The eAG is not equivalent to a fasting glucose. Blood 05/19/2023 8:43 PM CDT 05/19/2023 8:54 PM CDT Candace Deluna NP LAB BLOOD ORDERABLES Final R esult Performing Organization Address City/[facility]/ZIP Co de Phone Number [facility] [id number] [facility] Department [place] [address] * (ABNORMAL) Lipid panel (05/19/2023 8:43 PM CDT) Cholesterol 102 30 - 199 mg/dL Comment: Interpretive Data Ages < or = 19 years Acceptable: <170 mg/dL Borderline high: 170-199 mg/dL High: >or= 200 mg/dL Ages > or = 20 years Desirable: <200 mg/dL Borderline high: 200-239 mg/dL High: >or= 240 mg/dL Literature References: 1. Expert Panel on Integrated Guidelines for Cardiovascular Health and Risk Reduction in Children and Adolescents. Pediatrics 2011;128:S213 2. NCEP Expert Panel. Circulation 2004;110:227 Current Interpretive Data was last revised on 2017. Triglycerides 64 <=149 mg/dL [facility] Comment: Interpretive Data Ages < or = 9 years Acceptable: <75 mg/dL Borderline high: 75-99 mg/dL High: >or= 100 mg/dL Ages 10 to 20 years Acceptable: <90 mg/dL Borderline high: 90-129 mg/dL High: >or= 130 mg/dL Ages > or = 20 years Desirable: <150 mg/dL Borderline high: 150-199 mg/dL High: 200-499 mg/dL Very high: >or= 499 mg/dL Literature References: 1. Expert Panel on Integrated Guidelines for Cardiovascular Health and Risk Reduction in Children and Adolescents. Pediatrics 2011;128:S213 2. NCEP Expert Panel. Circulation 2004;110:227 Current Interpretive Data was last revised on 2017. HDL 27(L) >=40 mg/dL [facility] GRIMAL[facility] Comment: Interpretive Data Ages < or = 19 years Acceptable: >45 mg/dL Borderline low: 40-45 mg/dL Low: <40 mg/dL Ages > or = 20 years Desirable: >or= 60 mg/dL Low: <40 mg/dL Literature References: 1. Expert Panel on Integrated Guidelines for Cardiovascular Health and Risk Reduction in Children and Adolescents. Pediatrics 2011;128:S213 2. NCEP Expert Panel. Circulation 2004;110:227 Current Interpretive Data was last revised on 2017. LDL, calculated 62 <=129 mg/dL [facility] GRIMALDO Comment: Interpretive Data Ages < or = 19 years Acceptable: <110 mg/dL Borderline high: 110-129 mg/dL High: >or= 130 mg/dL Ages > or = 20 years Optimal: <100 mg/dL Near optimal: 100-129 mg/dL Borderline high: 130-159 mg/dL High: >160 mg/dL Literature References: 1. Expert Panel on Integrated Guidelines for Cardiovascular Health and Risk Reduction in Children and Adolescents. Pediatrics 2011;128:S213 2. NCEP Expert Panel. Circulation 2004;110:227 Current Interpretive Data was last revised on 2017. Non-HDL Cholesterol 75 mg/dL [facility] GRIMALDO Comment: Interpretive Data Ages < or = 19 years Acceptable: <120 mg/dL Borderline high: 120-144 mg/dL High: >145 mg/dL Ages > or = 20 years When triglycerides are >200 mg/dL, Non-HDL cholesterol is a secondary target of therapy with treatment goals that are 30 mg/dL greater than the LDL cholesterol target. Literature References: 1. Expert Panel on Integrated Guidelines for Cardiovascular Health and Risk Reduction in Children and Adolescents. Pediatrics 2011;128:S213 2. NCEP Expert Panel. Circulation 2004;110:227 Current Interpretive Data was last revised on 2017. Chol/HDL ratio 4 [facility] Blood 05/19/2023 8:43 PM CDT 05/19/2023 8:43 PM CDT us Candace Deluna NP LAB BLOOD ORDERABLES Final R esult [facility] [id number] Department [place] [address] * DIABETES EYE EXAM (08/28/2022 9:02 AM CDT) us Historical Provider HEALTH MAINTENANCE Final Result from Last 3 Months or Most Recently Relevant to Health Maintenance Insurance [employer] [place] A[employer] BETTER [facility] [employer]TER [facility] Care Teams Contract Serviceman Relationship Specialty Start Date End Date Candace Deluna NP [address] [facility] [address] [place] [address] PCP - General Family Medicine 05/19/23
--- OUTSIDE RECORDS SUMMARY | 2024-04-29 11:05 | XMS_ITS | Clinical Summary ---
Author Organization [facility] Address [address] [place] [address] Care Team Providers Care Telecommunications Equipment Installer Name Role Phone Candace Deluna NP Primary Care Provider [phone] Allergies Active Allergy Reactions Criticality Noted Date [...] hyperglycemia, without long-term current use of insulin ([facility]) Inject 0.5 mL (0.75 mg total) under the skin every 7 days 2 mL 06/24/19 24 Active metFORMIN XR (GLUCOPHAGE XR) 500 mg 24 hr tabletIndications: Type 2 diabetes mellitus with hyperglycemia, without long-term current use of insulin ([facility]) Take 1 tablet (500 mg total) by [...] 1 tablet (75 mcg total) by mouth newsperson before breakfast 30 tablet 1 10/12/19 24 [...] miscIndications: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 Recommend follow [...] than 150 g daily - referral to research group director - aim to walk at least 30 [...] CDT): - diagnosis with hepatitis-C back in 2016, never treated - referral to Gastroenterology Assessment [...] mellitus affecting 04/28/2013 05/20/2023 Abdominal 04/21/2013 05/20/19 Nonalcoholic steatohepatitis ([facility]) 10/29/2010 05/20/2023 Encounters Date Type Department Care Team Description 04/29/2024 8:30 AM VACUUM DRUM DRIER OPERATOR Emergency [facility] Emergency Department [address] [place] [address] 04/20/2024 3:15 PM VACUUM DRUM DRIER OPERATOR Telemedicine [facility] Medical Group Virtual Care [address] [place] [address] Dina Moncada NP Dental abscess (Primary Dx) 04/20/2024 Patient Self-Triage [facility] [address] [place] [address] Mychart, Generic Provider 03/09/2024 Orders Only [facility] Medical [facility] at [address] [place] [address] Candace Deluna NP from Last 3 Months Immunizations Immunization Administration Dates Next Due Influenza, Trivalent, IM (MDV) 05/12/2013 Influenza, Unspecified 05/19/2023(Deferr ed: Patient Refused),02/16/2023(Deferred: Patient Refused) Tdap 09/11/2016,05/12/2013 Surgical History Surgery Date Site/Laterality Comments SECTION Medical History Medical History Date Comments Hypertension Hepatitis C Thyroid disease Panic disorder with agoraphobia Diabetes mellitus affecting Social History Tobacco Use Types Packs/Day Years [...] on file Legal Sex Female 10:54 AM VACUUM DRUM DRIER OPERATOR Gender Identity Not on file Sexual Orientation Not on file Obstetrics History Last Filed Vital Signs Vital Sign Reading Time Taken Comments Blood Pressure 145/90 04/29/2024 8:35 AM VACUUM DRUM DRIER OPERATOR Pulse 105 04/29/2024 8:35 AM VACUUM DRUM DRIER OPERATOR Temperature 36.1 C (97 F) 04/29/2024 8:35 AM VACUUM DRUM DRIER OPERATOR Respiratory Rate 14 04/29/2024 8:35 AM VACUUM DRUM DRIER OPERATOR Oxygen Saturation 100% 04/29/2024 8:35 AM VACUUM DRUM DRIER OPERATOR Inhaled Oxygen Concentration - - Weight 104.3 kg (230 lb) 04/29/2024 8:35 AM VACUUM DRUM DRIER OPERATOR Height 162.6 cm (5' 4 ) 04/29/2024 8:35 AM VACUUM DRUM DRIER OPERATOR Body Mass Index 39.48 04/29/2024 8:35 AM VACUUM DRUM DRIER OPERATOR Plan of Treatment Health Maintenance Due Date Last Done Comments Breast Cancer Screening-Mammogram 1979 Cervical Cancer Screening 1979 Foot Exam 1979 Varicella Vaccines (1 of 2 - 13+ 2-dose series) 10/06/1992 Hepatitis B Screening 10/06/1997 Regular Well Visit/Exam 18-64 10/06/1997 Pneumococcal vaccine <65 (1 of 2 - PCV) 10/06/1998 Dilated Eye Exam 08/29/2023 08/28/2022 Influenza Vaccine (#1) 2023 05/12/2013 Hemoglobin A1C 11/19/2023 05/19/2023 Albumin Creatinine Ratio, Urine 05/18/2024 05/19/2023 Depression Screening 05/18/2024 05/19/2023 Lipid Panel 05/18/2024 05/19/2023, 06/23/2013 eGFR 06/30/2024 07/01/2023, 06/07, 05/19/2023, Additional history exists DTaP/Tdap/Td Vaccine (3 - Td or Tdap) 09/11/2026 09/11/2016, 05/12/2013 Hepatitis C Screening Completed 06/24/2023 , 05/20/2023, 05/20/2023, Additional history exists HPV Vaccines Aged Out No longer eligi ble based on patient's age to complete this topic Procedures Procedure Name Priority Date/Time Associated Diagnosis Comments EGFR STAT 07/01/2023 12:53 AM CDT ALBUMIN CREATININE RATIO, URINE Routine 05/19/2023 9:10 PM CDT Hypertension, essential HEPATITIS PANEL, ACUTE Routine 05/19/2023 9:02 PM CDT STI (sexually transmitted infection) HEMOGLOBIN A1C Routine 05/19/2023 8:43 PM CDT Screening for diabetes mellitus LIPID PANEL Routine 05/19/2023 8:43 PM CDT Screening for cholesterol level HM DIABETES EYE EXAM Routine 08/28/2022 9:02 AM [...] MD LAB BLOOD ORDERABLES Fin al Result ROSENDA [facility] ([facility]) [address] [facility] Department [place] [address] * (ABNORMAL) Albumin Creatinine Ratio, Urine (05/19/2023 9:10 PM CDT) Albumin Ur 345.2 mg/L Comment: Interpretive Data No reference range established. Current interpretive data was last revised 2018. Creatinine Ur 32.2 mg/dL ROSENDA Comment: Interpretive Data No reference range established. Current interpretive data was last revised 2018. Albumin Creatinine Ratio, Ur 1,072(H) 1 - 29 mg/g ROSENDA Urine 05/19/2023 9:10 PM CDT 05/19/2023 9:10 PM CDT us Candace Deluna NP LAB URINE ORDERABLES Final R esult Performing Organization Address City[facility] Co de Phone Number [facility] [address] Department [place] [address] * (ABNORMAL) Hepatitis panel, acute Blood (05/19/2023 9:02 PM CDT) Pathologist [facility] Hep A IgM Nonreactive Nonreactive Comment: Interpretive Data: If Hep A IgM Ab is reported as Equivocal, a new sample should be drawn in two weeks for testing. Current interpretive data was last revised on 19. Hep B core IgM Nonreactive Nonreactive [facility] Comment: Interpretive Data If HepB Core IgM [...] last revised on 2019. HepBsAg Nonreactive Nonreactive [facility] Blood 05/19/2023 9:02 PM CDT 05/19/2023 9:02 PM CDT Candace Deluna NP LAB MICROBIOLOGY - GENERAL O RDERABLES Final Result Performing Organization Address [facility] de Phone Number [facility] [address] [facility] [place] [address] * (ABNORMAL) Hemoglobin A1c (05/19/2023 8:43 PM CDT) Hgb A1C 8.4(H) 4.0 - 5.6 % Estimated Average Glucose 194 mg/dL ROSENDA Comment: The ADA recommends reporting an estimated Average Glucose (eAG) with all Hemoglobin A1c results using the equation derived from a study of 507 normal and diabetic adults. Minority populations were underrepresented and children were not included. (Diabetes Care 31:0780-4646, 2008). The eAG is not equivalent to a fasting glucose. Blood 05/19/2023 8:43 PM CDT 05/19/2023 8:54 PM CDT Candace Deluna NP LAB BLOOD ORDERABLES Final R esult Performing Organization Address [facility] Co de Phone Number [facility] [address] [facility] [place] [address] * (ABNORMAL) Lipid panel (05/19/2023 8:43 PM [...] on 2017. Triglycerides 64 <=149 mg/dL ROSENDA Comment: Interpretive Data Ages < or = [...] on 2017. HDL 27(L) >=40 mg/dL ROS[facility]DA Comment: Interpretive Data Ages < or = [...] 2017. LDL, calculated 62 <=129 mg/dL [facility] Comment: Interpretive Data Ages < or = [...] on 2017. Non-HDL Cholesterol 75 mg/dL ROSENDA Comment: Interpretive Data Ages < or = [...] 8:43 PM CDT 05/19/2023 8:43 PM CDT Candace Deluna NP LAB BLOOD ORDERABLES Final R esult ROSENDA [facility] [address] Department [place] [address] * DIABETES EYE EXAM (08/28/2022 9:02 AM CDT) Historical Provider HEALTH MAINTENANCE Final Result from Last 3 Months or Most Recently Relevant to Health Maintenance Insurance AETNA [facility] [employer] AETNA [facility] AETNA BETTER [facility] Care Teams Telecommunications Equipment Installer Relationship Specialty Start Date End Date Candace Deluna NP [address] [facility] [address] [address] PCP - General Family Medicine 05/19/23
--- OUTSIDE RECORDS SUMMARY | 2024-04-29 11:05 | XMS_ITS | Encounter Summary ---
Author Organization [facility] Address [address] [place] [address] Care Team Providers Care Library Technology Instructor Name Role Phone Candace Deluna NP Primary Care Provider [phone] Reason for Visit * Reason Comments Dental Pain Encounter Details Date Type Department Care Team (Late st Contact Info) Description 04/29/2024 8:30 AM OPTICAL ENGINEERING TECHNICIAN Emergency [facility] Emergency Department [address] [place] [address] Social History Tobacco Use Types Packs/Day Years [...] on file Legal Sex Female 10:54 AM OPTICAL ENGINEERING TECHNICIAN Gender Identity Not on file Sexual Orientation Not on file documented as of this encounter Last Filed Vital Signs Vital Sign Reading Time Taken Comments Blood Pressure 145/90 04/29/2024 8:35 AM OPTICAL ENGINEERING TECHNICIAN Pulse 105 04/29/2024 8:35 AM OPTICAL ENGINEERING TECHNICIAN Temperature 36.1 C (97 F) 04/29/2024 8:35 AM OPTICAL ENGINEERING TECHNICIAN Respiratory Rate 14 04/29/2024 8:35 AM OPTICAL ENGINEERING TECHNICIAN Oxygen Saturation 100% 04/29/2024 8:35 AM OPTICAL ENGINEERING TECHNICIAN Inhaled Oxygen Concentration - - Weight 104.3 kg (230 lb) 04/29/2024 8:35 AM OPTICAL ENGINEERING TECHNICIAN Height 162.6 cm (5' 4 ) 04/29/2024 8:35 AM OPTICAL ENGINEERING TECHNICIAN Body Mass Index 39.48 04/29/2024 8:35 AM OPTICAL ENGINEERING TECHNICIAN documented in this encounter ED Notes * Dina Dao, RN - 04/29/2024 8:34 AM CST Pt to ED for c/o dental pain x 2 weeks. Pt reports she has had pain intermittently x 4 months. Pt reports she had a telehealth visit and was given antibiotics. CAL ENGINEERING TECHNICIAN documented in this encounter Plan of Treatment Not on file documented as of this encounter Visit Diagnoses Not on filedocumented in this encounter Care Teams Library Technology Instructor Relationship Specialty Start Date End Date Candace Deluna NP [address] [address] PCP - General Family Medicine 05/19/23 documented as of this encounter
--- OUTSIDE RECORDS SUMMARY | 2024-04-29 11:05 | XMS_ITS | Clinical Summary ---
Author Organization [facility] Address [address] [place] [address] Phone Care Team Providers Care Mill Controller Name Role Phone Provider, None Primary Care Provider Unavailabl e Allergies Active Allergy Reactions Criticality Noted Date Comments Tramadol Palpitations 05/06/2015 Medications ALPRAZolam (XANAX) 0.5 MG Tablet Take 1 Tab by mouth 3 times daily as needed. 30 Tab 0 6 Active carvedilol (COREG) 12.5 MG Tablet Take 1 Tab by mouth 2 times daily. 60 Tab 0 6 Active gabapentin (NEURONTIN) 800 MG Tablet Take 1 Tab by mouth 2 times daily. 60 Tab 0 6 Active Additional Information Patient taking differently: 900 mgOral 2 TIMES DAILY, Reported on 02/06/2016 ALPRAZolam (XANAX) 0.5 MG Tablet Take 1 Tab by mouth 3 times daily as needed. 15 Tab 0 6 Active busPIRone (BUSPAR) 15 MG Tablet Take 1 Tab by mouth 3 times daily. 45 Tab 0 6 Active carvedilol (COREG) 12.5 MG Tablet Take 1 Tab by mouth 2 times daily. 30 Tab 0 6 Active raNITIdine (ZANTAC) 300 MG Tablet Take 0.5 Tabs by mouth 2 times daily. 60 Tab 0 6 Active simvastatin (ZOCOR) 40 MG Tablet Take 1 Tab by mouth every evening. 30 Tab 0 6 Active citalopram (CELEXA) 40 MG Tablet Take 1 Tab by mouth daily. 15 Tab 0 6 Active FLUoxetine (PROZAC) 40 MG Capsule Take 40 mg by mouth daily. Active Omeprazole (PRILOSEC PO) Take by mouth 2 times daily. Active lisinopril-hydr oCHLOROthiazide (PRINZIDE, ZESTORETIC) 20-25 MG Tablet Take 1 Tablet by mouth daily. FOR HIGH BLOOD PRESSURE 90 Tablet 1 Active levothyroxine (SYNTHROID) 100 MCG Tablet Take 1 Tablet by mouth daily. FOR YOUR THYROID 90 Tablet 1 Active lisinopril-hydr oCHLOROthiazide (PRINZIDE, ZESTORETIC) 20-25 MG Tablet Take 1 Tablet by mouth daily. 90 Tablet 2 Active levothyroxine (SYNTHROID) 125 MCG Tablet Take 1 Tablet by mouth daily. 90 Tablet 2 Active lisinopril-hydr oCHLOROthiazide (PRINZIDE, ZESTORETIC) 20-25 MG Tablet Take 1 Tablet by mouth daily. 30 Tablet 2 Active lisinopril-hydr oCHLOROthiazide (PRINZIDE, ZESTORETIC) 20-25 MG Tablet Take 1 Tablet by mouth daily. 30 Tablet 2 Active levothyroxine (SYNTHROID) 125 MCG Tablet Take 1 Tablet by mouth daily. 30 Tablet 2 Active Active Problems No known active problems Immunizations Immunization Administration Dates Next Due TDAP Vaccine 09/11/2016 Social History Tobacco Use Types Packs/Day Years Used Date Smoking Tobacco: Every Day Cigarettes Smokeless Tobacco: Never Alcohol Use Standard Drinks/Week Comments No 0 (1 standard drink = 0.6 oz pur e alcohol) Comments No Sex and Gender Information Value Date Recorded Sex Assigned at Not on file Legal Sex Female 11:51 PM CDT Gender Identity Not on file Sexual Orientation Not on file Last Filed Vital Signs Vital Sign Reading Time Taken Comments Blood Pressure 168/92 02/19/2022 2:50 AM ILLUMINATING ENGINEER Pulse 91 02/19/2022 2:50 AM ILLUMINATING ENGINEER Temperature 36.4 C (97.5 F) 02/19/2022 2:50 AM ILLUMINATING ENGINEER Respiratory Rate 18 02/19/2022 2:50 AM ILLUMINATING ENGINEER Oxygen Saturation 98% 02/19/2022 2:50 AM ILLUMINATING ENGINEER Inhaled Oxygen Concentration - - Weight 108.9 kg (240 lb) 02/19/2022 2:50 AM ILLUMINATING ENGINEER Height 162.6 cm (5' 4 ) 02/19/2022 2:50 AM ILLUMINATING ENGINEER Body Mass Index 41.2 02/19/2022 2:50 AM ILLUMINATING ENGINEER Plan of Treatment Health Maintenance Due Date Last Done Comments Hepatitis C Virus (HCV) Screening 1979 Hepatitis B Immunization (1 of 3 - 19+ 3-dose series) 10/06/1998 Pap Smear 10/06/2000 Cervical Cancer Screening (CCS) 10/06/2009 HPV/Cotest 10/06/2009 Discussion re Starting/Frequ ency of Mammograms 2019 Influenza Immunization (#1) 2023 SARS-COV-2 Immunization ( season) 2023 Respiratory Syncytial Virus (RSV) Immunization (Adult) (1 - 1-dose 75+ series) 10/06/2054 DTaP/Tdap/Td Immunization Discontinued 09/11/2016 Meningococcal Immunization (ACWY) Aged Out No longer eligible based on patient's age to complete this topic Pneumococcal Immunization Combined Aged Out No longer eligible b ased on patient's age to complete this topic Rotavirus Immunization Aged Out No lo nger eligible based on patient's age to complete this topic Insurance MEDICAID AETNA [facility] Care Teams Mill Controller Relationship Specialty Start Date End Date Provider, None [place] PCP - General 11/28/15
--- OUTSIDE RECORDS SUMMARY | 2024-04-29 11:05 | XMS_ITS | Referral Summary ---
Author Organization [facility] Address [address] [place] [address] Care Team Providers Care Catering Attendant Name Role Phone Griselda Coy LOG SORTING SUPERVISOR-MAINT MECHANIC Primary Care Provider + Source Comments [facility],non-owned Affiliates and Associated Physician Practices is amultiple site organization consisting of ambulatory clinics and hospital sitesin [place], [place], [place] and [place]. This disclosure is being madepursuant to the Care Everywhere program and may not contain all information available regarding this patient. Last updated 17.[facility] Allergies No known active allergies Medications * Be aware that medications may not be up to date on this document. Alwaysverify current medications with the patient. Medication Sig Dispensed Refills Start Date End Date Status lisinopril-hydroCHLOR Othiazide (PRINZIDE; ZESTORETIC) 10-12.5 MG tablet Take 1 (one) tablet by mouth once daily 14 tablet 02/07/2021 Active Immunizations Name Administration Dates Next Due TDAP (7yrs+) 09/11/2016 Social History Tobacco Use Types Packs/Day Years Used Date Smoking Tobacco: Every Day Cigarettes Sex and Gender Information Value Date Recorded Sex Assigned at Not on file Gender Identity Female 02/07/2021 11:29 AM EMPLOYMENT ASSISTANT Sexual Orientation Not on file Last Filed Vital Signs Vital Sign Reading Time Taken Comments Blood Pressure 159/100 02/07/2021 11:16 AM EMPLOYMENT ASSISTANT Pulse 82 02/07/2021 11:16 AM EMPLOYMENT ASSISTANT Temperature 36.2 C (97.2 F) 02/07/2021 11:16 AM EMPLOYMENT ASSISTANT Respiratory Rate 18 02/07/2021 11:16 AM EMPLOYMENT ASSISTANT Oxygen Saturation 100% 02/07/2021 11:16 AM EMPLOYMENT ASSISTANT Inhaled Oxygen Concentration - - Weight 117.9 kg (260 lb) 02/07/2021 11:16 AM EMPLOYMENT ASSISTANT Height 162.6 cm (5' 4 ) 02/07/2021 11:16 AM EMPLOYMENT ASSISTANT Body Mass Index 44.63 02/07/2021 11:16 AM EMPLOYMENT ASSISTANT Plan of Treatment Not on file Care Teams Catering Attendant Relationship Specialty Start Date End Date Griselda Coy APRN-TELMA PCP - General Nurse Practitioner Family 02/11/21
--- OUTSIDE RECORDS SUMMARY | 2024-04-29 11:05 | XMS_ITS | Clinical Summary ---
Author Organization [facility] Address [address] [place] [address] Care Team Providers Care Cutter First Name Role Phone Griselda Coy CARDIAC EXERCISE PHYSIOLOGIST-RESIDENTIAL LEASING AGENT Primary Care Provider + Source Comments [facility],non-owned Affiliates and Associated Physician Practices is amultiple site organization consisting of ambulatory clinics and hospital sitesin [place], [place], [place] and [place]. This disclosure is being madepursuant to the Care Everywhere program and may not contain all information available regarding this patient. Last updated 17.[facility] Allergies No known active allergies Medications * [...] file Gender Identity Female 02/07/2021 11:29 AM OSTEOPATHIC NEUROLOGIST Sexual Orientation Not on file Last Filed Vital Signs Vital Sign Reading Time Taken Comments Blood Pressure 159/100 02/07/2021 11:16 AM OSTEOPATHIC NEUROLOGIST Pulse 82 02/07/2021 11:16 AM OSTEOPATHIC NEUROLOGIST Temperature 36.2 C (97.2 F) 02/07/2021 11:16 AM OSTEOPATHIC NEUROLOGIST Respiratory Rate 18 02/07/2021 11:16 AM OSTEOPATHIC NEUROLOGIST Oxygen Saturation 100% 02/07/2021 11:16 AM OSTEOPATHIC NEUROLOGIST Inhaled Oxygen Concentration - - Weight 117.9 kg (260 lb) 02/07/2021 11:16 AM OSTEOPATHIC NEUROLOGIST Height 162.6 cm (5' 4 ) 02/07/2021 11:16 AM OSTEOPATHIC NEUROLOGIST Body Mass Index 44.63 02/07/2021 11:16 AM OSTEOPATHIC NEUROLOGIST Plan of Treatment Health Maintenance Due Date Last Done Comments LIPID TESTING 1979 MAMMOGRAM 1979 PAP SMEAR 1979 HIV SCREENING 10/06/1994 HEPATITIS C SCREENING 10/02/1997 HEPATITIS B VACCINE (1 of 3 - 19+ 3-dose series) 10/06/1998 PNEUMOCOCCAL VACCINE (1 of 2 - PCV) 10/06/1998 SCREENING FOR DIABETES 02/11/2021 COVID-19 VACCINE ( - 2023-2 5 season) 2023 INFLUENZA VACCINE (#1) 2023 DEPRESSION SCREENING 03/09/2024 DTAP/TDAP/TD VACCINES (2 - T d or Tdap) 09/11/2026 09/11/2016 ZOSTER VACCINE (1 of 2) 10/06/2029 HIB VACCINE Aged Out No longer eligi ble based on patient's age to complete this topic HPV VACCINE Aged Out No longer eligi ble based on patient's age to complete this topic MENINGOCOCCAL (Group B) VACCINE Aged Out No longer eligible based on patient's age to complete this topic MENINGOCOCCAL VACCINE Aged Out No cheryl aline eligible based on patient's age to complete this topic Care Teams Cutter First Relationship Specialty Start Date End Date Griselda Coy APRN-RESIDENTIAL LEASING AGENT PCP - General Nurse Practitioner Family 02/11/21
--- OUTSIDE RECORDS SUMMARY | 2024-04-29 11:05 | XMS_ITS | Patient Health Summary ---
Author Organization [facility] Address [address] [place] [address] Care Team Providers Care Blend Technician Name Role Phone Griselda Coy MARKET NEWS REPORTER-GEOLOGY FACULTY MEMBER Primary Care Provider + Note from [facility],non-owned Affiliates and Associated Physician Practices is amultiple site organization consisting of ambulatory clinics and hospital sitesin [place], [place], [place] and [place]. This disclosure is being madepursuant to the Care Everywhere program and may not contain all information available regarding this patient. Last updated 17.[facility] Allergies No known active allergies Medications * Be aware that medications may not be up to date on this document. Alwaysverify current medications with the patient. * lisinopril-hydroCHLOROthiazide (PRINZIDE; ZESTORETIC) 10-12.5 MG tablet (Started 02/07/2021) Take 1 (one) tablet by mouth once daily Immunizations * TDAP (7yrs+)(Given 09/11/2016) Social History Tobacco Use Types Packs/Day Years Used Date Smoking Tobacco: Every Day Cigarettes Sex and Gender Information Value Date Recorded Sex Assigned at Not on file Gender Identity Female 02/07/2021 11:29 AM CHILDBIRTH AND INFANT CARE TEACHER Sexual Orientation Not on file Last Filed Vital Signs Vital Sign Reading Time Taken Comments Blood Pressure 159/100 02/07/2021 11:16 AM CHILDBIRTH AND INFANT CARE TEACHER Pulse 82 02/07/2021 11:16 AM CHILDBIRTH AND INFANT CARE TEACHER Temperature 36.2 C (97.2 F) 02/07/2021 11:16 AM CHILDBIRTH AND INFANT CARE TEACHER Respiratory Rate 18 02/07/2021 11:16 AM CHILDBIRTH AND INFANT CARE TEACHER Oxygen Saturation 100% 02/07/2021 11:16 AM CHILDBIRTH AND INFANT CARE TEACHER Inhaled Oxygen Concentration - - Weight 117.9 kg (260 lb) 02/07/2021 11:16 AM CHILDBIRTH AND INFANT CARE TEACHER Height 162.6 cm (5' 4 ) 02/07/2021 11:16 AM CHILDBIRTH AND INFANT CARE TEACHER Body Mass Index 44.63 02/07/2021 11:16 AM CHILDBIRTH AND INFANT CARE TEACHER Procedures * CHLAMYDIA + GC AMPLIFIED PROBE(Performed 02/07/2021) Performed for Vaginal discharge Results * CHLAMYDIA + GC AMPLIFIED PROBE (02/07/2021 11:45 AM CHILDBIRTH AND INFANT CARE TEACHER) Chlamydia ANTHONY Urine Negative Negative 02/08/2021 10:05 PM CHILDBIRTH AND INFANT CARE TEACHER [facility] GC ANTHONY Urine Negative Negative 02/08/2021 10:05 PM CHILDBIRTH AND INFANT CARE TEACHER [facility]) Microbiology URINE / Unknown Collection / Unknown 02/07/2021 11:45 AM CHILDBIRTH AND INFANT CARE TEACHER 02/07/2021 11:45 AM CHILDBIRTH AND INFANT CARE TEACHER Narrative [facility]) - 02/08/2021 10:05 PM CHILDBIRTH AND INFANT CARE TEACHER Performed at: - [address] [id number] Winter Intern: Ruthie Perez MD, Phone: [phone] Jose Manuel Garcia MARKET NEWS REPORTER-GEOLOGY FACULTY MEMBER LAB - MICROBIOLO GY ORDERABLES [facility] ([facility]) [address] [place] [id number] Care Teams Blend Technician Relationship Specialty Start Date End Date Griselda Coy APRN-TELMA PCP - General Nurse Practitioner Family 02/11/21
== END 2024-04-29 11:14 | disposition home or self-care (01) ==
PROVIDERS: Emergency Provider Nurse Practitioner Family
DX: K04.6 Periapical abscess with sinus (principal); E03.9 Hypothyroidism, unspecified; I10 Essential (primary) hypertension; F17.210 Nicotine dependence, cigarettes, uncomplicated; Z79.899 Other long term (current) drug therapy
CPT/HCPCS: 99213; G0463